=== PATIENT | female | born 1990 | race Caucasian/White ===

== ENCOUNTER 2017-06-11 18:01 | Emergency (ER) | payer OTHER | END 2017-06-11 20:00 | disposition home or self-care (01) | LOC: FER 18:01 | DX: J20.9 Acute bronchitis, unspecified (principal); J45.909 Unspecified asthma, uncomplicated; R09.1 Pleurisy; Z79.899 Other long term (current) drug therapy | CPT/HCPCS: 71020; 87804; 87899; 93005; 94640; 94664; 94760 ==